=== PATIENT | female | born 1985 | race African-American/Black ===

== ENCOUNTER 2016-05-13 16:32 | Outpatient (CLI) | payer OTHER | END 2016-05-13 22:41 | disposition home or self-care (01) | LOC: LAB 16:32 | DX: N39.0 Urinary tract infection, site not specified (principal) | CPT/HCPCS: 81000 ==

== ENCOUNTER 2016-05-14 10:47 | Outpatient (CLI) | payer OTHER ==
[2016-05-14 12:17] LABS: POTASSIUM 3.6 mmol/L (3.6-5.2); SODIUM 139 mmol/L (136-145)
[2016-05-14 12:48] LABS: PLATELET COUNT 332 K/uL (152-353)
== END 2016-05-14 23:43 | disposition home or self-care (01) ==
LOC: LABW 10:47
PROVIDERS: Family Medicine
DX: N39.0 Urinary tract infection, site not specified (principal); R00.1 Bradycardia, unspecified; R53.83 Other fatigue; R40.0 Somnolence; R63.5 Abnormal weight gain; M54.5 Low back pain
CPT/HCPCS: 36415; 80053; 80061; 83735; 84439; 84443; 85027; 93005

== ENCOUNTER 2016-07-29 12:30 | Outpatient (CLI) | payer OTHER | END 2016-07-29 19:20 | disposition home or self-care (01) | LOC: LAB 12:30 | DX: N39.0 Urinary tract infection, site not specified (principal) | CPT/HCPCS: 81000; 87077; 87086; 87088; 87186 ==

== ENCOUNTER 2016-09-30 18:28 | Outpatient (CLI) | payer OTHER | END 2016-09-30 19:30 | disposition home or self-care (01) | LOC: LAB 18:28 | DX: N39.0 Urinary tract infection, site not specified (principal) | CPT/HCPCS: 81000; 87077; 87086; 87088; 87186 ==

== ENCOUNTER 2018-02-03 12:05 | Outpatient (CLI) | payer OTHER ==
[2018-02-03 12:36] LABS: PLATELET COUNT 293 K/uL (152-353)
[2018-02-03 13:30] LABS: POTASSIUM 3.6 mmol/L (3.6-5.2)
== END 2018-02-03 19:22 | disposition home or self-care (01) ==
LOC: LABW 12:05
PROVIDERS: Family Medicine
DX: N92.6 Irregular menstruation, unspecified (principal)
CPT/HCPCS: 36415; 80053; 84439; 84443; 85027